=== PATIENT | male | born 1990 | race American Indian/Alaskan Native ===

== ENCOUNTER 2017-07-26 19:12 | Emergency (ER) | payer OTHER ==
[2017-07-26 20:03] LABS: PLATELET COUNT 132 10^3/uL (150-400)
[2017-07-26 20:06] LABS: INR 1.16 (0.83-1.16); PROTIME(PATIENT) 14.7 SEC (12.0-15.0)
[2017-07-26] MEDS ORDERED: IPRATROPIUM/ALBUTEROL 3 ML DEYVIAL IH ONE ×2 (20:29→22:07)
--- NOTE | 2017-07-26 22:52 | EDPHY ---
H & P Time Seen by Provider: 07/26/17 19:40 HPI/ROS: CHIEF COMPLAINT: Bilateral leg swelling HISTORY OF PRESENT ILLNESS: 27-year-old male presents with complaints of lower extremity edema which he says has been present for a few months. He also says he has been constipated for about 1 month with early satiety. Patient tells me that 3 months ago he was at [facility] for 3-4 days with swollen legs and inability to walk well. He was told at that time that he has some decreased liver function and was encouraged to stop drinking alcohol but has not done so. He has not established care with a primary care physician in the area. He describes a fairly heavy alcohol history over the last 10 years as well as a history of using cocaine and marijuana. He denies any drugs now but does continue to drink alcohol. He denies significant abdominal pain. He has had no bleeding per rectum or vomiting blood. He has had no fevers or chills. REVIEW OF SYSTEMS: Constitutional: No fever, no chills. Eyes: No discharge. ENT: No sore throat. Cardiovascular: No chest pain, no palpitations. Respiratory: No cough, no shortness of breath. Gastrointestinal: No abdominal pain, no vomiting. Genitourinary: No dysuria. Musculoskeletal: No back pain. Skin: No rashes. Neurological: No headache. General Appearance: Alert, ill-appearing with muscle wasting to the face and upper extremities. Eyes: Pupils equal and round no pallor or injection. No icterus ENT, Mouth: Mucous membranes moist. Respiratory: There are no retractions, bilateral diffuse wheezing inspiratory and expiratory Cardiovascular: Regular rate and rhythm. Gastrointestinal: Abdomen is firm but nontender, no masses, bowel sounds normal. No ascites. Neurological: Awake and alert no tremor, normal strength and sensation. Skin: Warm and dry, poor color, diffuse acne and other excoriations to the face chest and back. Musculoskeletal: Neck is supple nontender. Lower extremities with significant venous stasis changes and edema to above the knees. Normal range of motion, sensation. Normal strength. Psychiatric: Patient is oriented X 3, there is no agitation. Medical/surgical history: Appendectomy. Social history: Lives with aunt and grandmother. Does smoke cigarettes. Smoking Status: Never smoked Constitutional: Initial Vital Signs Temperature (C) 37.6 C 07/26/17 19:29 Heart Rate 94 05/15/18 19:29 Respiratory Rate 16 07/26/17 19:29 Blood Pressure 138/93 H 07/26/17 19:29 O2 Sat (%) 90 L 07/26/17 19:29 O2 Delivery Mode Room Air O2 (L/minute) 2 Allergies/Adverse Reactions: No Known Allergies Allergy (Verified 07/26/17 19:28) Home Medications: Medication Instructions Recorded No Medications [NO HOME 05/01/11 MEDICATIONS] Medical Decision Making ED Course/Re-evaluation: Re-evaluation after 1st DuoNeb shows improved aeration but still diffuse wheezes. 9:45 p.m. discussed in detail with patient need for admission for his multiple problems related to his alcoholism. Patient refused. Reviewed risks and benefits of admission versus leaving against medical advice. Patient understands the risks and is competent to make decisions. I told him that he was welcome to return to this or other emergency department if he felt worse or changed his mind. He did sign an against Medical advice form. Differential Diagnosis: Differential diagnosis includes but is not limited to alcoholism, liver failure , bacterial peritonitis, constipation, asthma, lower extremity cellulitis. After evaluation patient surprisingly ill from his alcoholism given his age of 27. No actual jaundice but bilirubin up. No signs of GI bleed, peritonitis, anemia. INR is elevated. Patient without large ascites but states constipation for some time. Patient signed out against medical advice. I encouraged him to establish primary care in the area and to stop drinking. described to him and his family his poor prognosis, especially if left untreated. He understands he can return to the emergency department at any time. - Data Points Laboratory Results: Laboratory Results 07/26/17 19:40 07/26/17 19:40 Medications Given: Discontinued Medications Albuterol/Ipratropium (Duoneb) 3 ml [facility] EDNOW ONE Stop: 07/26/17 20:30 Last Admin: 07/26/17 20:39 Dose: 3 ml Albuterol/Ipratropium (Duoneb) 3 ml [facility] EDNOW ONE Stop: 07/26/17 22:08 Last Admin: 07/26/17 22:10 Dose: 3 ml Departure - Departure Disposition: Against Medical Advice Clinical Impression: Alcoholism /alcohol abuse Condition: Serious Instructions: Alcohol Dependence (ED) Additional Instructions: You need to stop drinking. You should establish primary care doctor in the area. Please return to this emergency department or [facility] if you feel worse in any way. Referrals: NONE *PRIMARY CARE P,. [Primary Care Provider] - As per Instructions Aster Rooney MD [[facility] [place]] - As per Instructions
[2017-07-26 23:07] VITALS: BP 123/74
== END 2017-07-26 23:00 | disposition left against medical advice (07) ==
LOC: CED 19:12
DX: F10.10 Alcohol abuse, uncomplicated (principal)
CPT/HCPCS: 71046-PO; 80053-PO; 82248-PO; 83690-PO; 85025-PO; 85610-PO

== ENCOUNTER → 2017-10-05 | Outpatient (CLI) | payer OTHER | LOC: BMCIMAGING 14:39 | PROVIDERS: ATTEND Internal Medicine | DX: R06.2 Wheezing (principal); R91.8 Other nonspecific abnormal finding of lung field ==

== ENCOUNTER → 2017-10-12 | Outpatient (CLI) | payer OTHER ==
[~2017-10-12] MED LIST: IOPAMIDOL (ISOVUE-300) 100 ML BTL ONE
== END ==
LOC: CIMAGING 10:51
PROVIDERS: ATTEND Internal Medicine
DX: R60.0 Localized edema (principal); K56.41 Fecal impaction; R93.3 Abnormal findings on diagnostic imaging of other parts of digestive tract; Z72.89 Other problems related to lifestyle
CPT/HCPCS: 74177-PO; Q9967

== ENCOUNTER → 2018-07-28 | Outpatient (CLI) | payer OTHER | LOC: EMCIMAGING 14:38 | PROVIDERS: ATTEND Podiatrist Foot & Ankle Surgery | DX: I89.0 Lymphedema, not elsewhere classified (principal); M85.871 Other specified disorders of bone density and structure, right ankle and foot; M85.872 Other specified disorders of bone density and structure, left ankle and foot | CPT/HCPCS: 73660-PN ==